=== PATIENT | female | born 1995 | race Caucasian/White ===

== ENCOUNTER 2017-11-21 06:31 | Day surgery (SDC) | payer MEDICAID ==
[~2017-11-21] VITALS: Ht 165.1 cm; Wt 95.3 kg
--- NOTE | ~2017-11-21 | OP ---
PATIENT NAME: JERZY RESENDEZ MEDICAL RECORD: [id number] :[birth year] [facility] DATE: SURGEON: SHANTAL RANDLE MD DATE OF OPERATION: 11/21/2017 PREOPERATIVE DIAGNOSIS: Chronic pharyngitis. POSTOPERATIVE DIAGNOSIS: Chronic pharyngitis. PROCEDURE: Tonsillectomy and adenoidectomy. SURGEON: Shantal Randle MD ANESTHESIA: General orotracheal. BLOOD LOSS: Less than 5 cc. SPECIMENS: Right and left tonsil. COMPLICATIONS: None. DISPOSITION: Recovery stable. DESCRIPTION OF PROCEDURE: She was brought to the operating room and placed in supine position, sedated and intubated by anesthesia. The eyes were taped. Table was turned 90 degrees. Head drapes applied. She was positioned for tonsillectomy. Using a headlight, a Ailyn-Darnell mouth gag was carefully inserted and elevated on towel and chest. The palate was examined and palpated, it was normal. A red rubber catheter was placed through right side nose into the pharynx and grasped with tonsil clamp to retract the soft palate. Using a mirror, the nasopharynx examined. Suction cautery on a setting of 35 was used to ablate and suction the adenoid pad with no significant bleeding. The choanae and eustachian orifices were normal bilaterally. She did have large inferior turbinates. The red rubber catheter was let down and removed. The right tonsil was grasped at the superior pole with a straight Allis clamp. Spatula tip cautery on a setting of 9 was used to dissect out the tonsil along its capsule, preserving the anterior and posterior tonsillar pillar. The left tonsil was removed in the same fashion. Then, both sides were irrigated with saline. The pharynx was suctioned. Tonsillar fossae were agitated. Suction cautery on a setting of 20 was used to control minimal oozing. With the field clean and dry, she was awakened, extubated and transferred to recovery in good condition. No complications. TRANSINT:[id number] Voice Confirmation ID: [id number] DOCUMENT ID: [id number] SHANTAL RANDLE MD at 1044 CC: [id number] DICTATION DATE: 11/21/17 0947 SHELVER: 11/21/17 1204 [facility] 11/21/17 [facility] [address] [place] [address]
--- NOTE | ~2017-11-21 | HP ---
PATIENT: ELIZABETH RESENDEZ MEDICAL RECORD: [id number] ACCOUNT: [id number] LOCATION:[facility] : 89 ADMISSION DATE: 11/21/17 HISTORY AND PHYSICAL EXAMINATION HISTORY OF PRESENT ILLNESS: Elizabeth is 22 years' old. She has been having recurrent pharyngitis. She is being admitted for tonsillectomy and adenoidectomy. PAST MEDICAL HISTORY: Otherwise negative. PAST SURGICAL HISTORY: Heart surgery in 2003 at [facility]. CURRENT MEDICATIONS: None. ALLERGIES: SULFA. PHYSICAL EXAMINATION: GENERAL: She is healthy-appearing, developmentally normal. FACE: Normal, symmetric, no lesions. EYES: Sclerae and conjunctivae are normal. EARS: Canals normal. TMs normal. NOSE: No mass, polyps, or drainage. ORAL CAVITY AND OROPHARYNX: A 3-4+ cryptic tonsils. NECK: No masses, no adenopathy. She has small jugulodigastric node on the right. CHEST: Clear. CARDIOVASCULAR: Regular rate and rhythm, no murmur. EXTREMITIES: Normal. IMPRESSION: Chronic pharyngitis. PLAN: Tonsillectomy and adenoidectomy. TRANSINT:[id number] Voice Confirmation ID: [id number] DOCUMENT ID: [id number] SHANTAL DE LA CRUZ MD at 1044 CC: [id number] DICTATION DATE: 11/18/17 1519 PRODUCT MARKETER: 11/18/17 1530 [facility] 11/21/17 [place] [address]
[2017-11-21 07:08] VITALS: BP 138/88; Ht 165.1 cm; Wt 95.3 kg
[2017-11-21 07:27] LABS: HCG URINE NEGATIVE (NEGATIVE)
[2017-11-21 07:38] LABS: HEMATOCRIT 40.8 % (36.0-48.0); MCH 30.4 pg (26.0-34.0); MCHC 34.3 g/dL (31.0-37.0); MCV 88.5 fL (80.0-100.0); MEAN PLATELET VOLUME 9.6 fL (7.4-10.4); RBC 4.61 10x6/uL (4.00-5.40); RDW 11.9 % (11.5-14.5); WBC 6.9 10x3/uL (4.8-10.8)
== END 2017-11-21 11:20 | disposition home or self-care (01) ==
LOC: D.OPS 06:31 → D.PAN 07:30 → D.OPS 08:00
PROVIDERS: Anesthesiology; Otolaryngology
DX: J35.01 Chronic tonsillitis (principal); Z01.812 Encounter for preprocedural laboratory examination